=== PATIENT | female | born 1965 | race Caucasian/White ===

== ENCOUNTER 2016-11-07 13:11 | Emergency (ER) | payer OTHER ==
--- NOTE | 2016-11-07 13:25 | EDPHY ---
HPI/HX/ROS/PE/MDM Narrative: CHIEF COMPLAINT: Left-sided paresthesias HPI: This patient is an anticoagulated 51 year old female complaining of an episode of left-sided numbness and facial droop onset one hour ago. She began feeling numbness on her left side, and loss of sensation in her left forefinger and thumb. She was in a meeting with a client and got up to leave the coffee shop and noted tingling in her back and shoulders. She went back in to find a mirror , and saw the left side of her face was drooping when she tried to smile. Her client, a nurse, drove her here to the emergency department for evaluation. Her facial droop is now resolved, but she continues to note numbness and paresthesias across the back of her head, arm, and shoulders. She denies pain anywhere in her body or any recent trauma. Of note, she generally takes Prozac for management of post-menopausal symptoms, but ran out of her prescription on Sunday so has not taken it in four days. The patient has a complex history related to mitral valve regurgitation repair. She had an paola replacement placed 01/[address] Carpenter at [facility]. Following the procedure, she sustained a myocardial infarction and cardiogenic shock. While in cardiac rehab, she suffered a stroke or transient ischemic attack, which resolved on its own. She is now anticoagulated, on Plavix and Coumadin. She denies history of hypertension, hyperlipidemia, or coronary artery disease. Due to this history, she is vigilant regarding potential stroke symptoms. REVIEW OF SYSTEMS: Aside from elements discussed in the HPI, a comprehensive 10-point review of systems was reviewed and is negative. PMH: Mitral valve replacement, CVA (Coumadin, Plavix) SOCIAL HISTORY: . at bedside. 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 PHYSICAL EXAM: General:Patient is alert, in no acute distress. ENT:Eyes are normal to inspection. ENT inspection normal. Neck: Normal inspection. Full range of motion. Respiratory:No respiratory distress. Breath sounds normal bilaterally. Cardiovascular: Regular rate and rhythm. Strong peripheral pulses. Normal cap refill. Abdomen:The abdomen is nontender to palpation. There are no peritoneal signs. There are normal bowel sounds. Back: Normal to inspection. No tenderness to palpation. Skin: Normal color. No rash. Warm and dry. Extremities: Normal appearance. Full range of motion. Neuro: Oriented x3. Normal motor function. Normal sensory function. No pronator drift. No facial droop. 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 Speech normal. Normal gait. Portions of this note were transcribed by an ED scribe. I personally performed the history, physical exam, and medical decision making; and confirm the accuracy of the information in the transcribed note. ED Course: 51 year old female presents with back, neck, and left upper extremity numbness onset one hour ago. Normal neurologic exam at this time. Plan for CBC, BMP, Troponin, PTPTT. Plan to administer 1mg IV Ativan. Plan for CT head without contrast. 14:[address] Szymanski, radiologist. CT head reveals no evidence for acute intracranial abnormality. There is a focal area of encephalomalacia in the posterolateral left frontal lobe suggesting sequela from an old infarct. 15:[address] Hector neurologist. He recommends CTA studies of patient' s head and neck. 16:[address] Brown, radiologist. CTA head and neck negative for acute processes. Incidentally, noted opacity in lung, Dr. Brown recommends CT chest. Reassessed the patient. Discussed imaging results. Offered CT chest at this time or in outpatient setting. She prefers to complete the scan now. Plan for CT chest for further evaluation of the patient's lung abnormality. 17:18 Reassessed patient. 17:45 Patient has left her room prior to CT and was found in the cafeteria. She will be offered the opportunity for outpatient scan. Waiting room is full at this time, and we are not able to hold her room. She will be offered space in the hallway beds for reassessment should she return. 18:[address] chest. She prefers not to wait for results. Plan to discharge home in good condition. Follow up and return precautions discussed. MDM: This patient presents with signs and symptoms of TIA. Her symptoms have largely resolved by time of arrival and I see no objective deficits on exam. Given her history of CVA and mitral valve surgery, we performed an extensive workup including CTA to ensure that there was no interventionable issue. Thankfully workup is negative. The patient is essentially maximized from a CVA prevention standpoint given her coumadin therapy, and on-call Neurology does not think further workup is necessary. The patient's CTA revealed an incidental ground-glass opacity in the lung. I discussed this issue with the patinent and offered her CT chest during this visit to evaluate this abnormality vs. the option of following up with her PCP for further evaluation. She elected to go with CT-chest during this visit in order to try and save on insurance fees. I ordered the test. Not long after, I was called back to room as patient and her were asking why they were not yet discharged and what the plan was. I reiterated to them that we we had discussed the option of a CT chest and that patient had requested we perform one. They agreed to stay for the test. Approximately 5-10 minutes after that conversation, the page technician attempted to get the patient for the study but she was nowhere to be found. We searched the ED but could not find her, so turned over the bed as our waiting room was full of emergency patients waiting to be seen. Her belongings were turned over to security. The patient was eventually located in the cafeteria having dinner with her . She underwent the CT scan but on return to the ED told the nurse that she did not want to wait for results and wanted to be discharged immediately. She was informed that we could not follow-up with her regarding the results if she chose this path. She left the ER. - Data Points Imaging Results: Imaging Impressions Head CT 11/07/16 13:35 Impression: No evidence for acute intracranial abnormality. Focal area of encephalomalacia in the posterolateral left frontal lobe suggesting sequela from an old infarct. Results called and discussed with Ciro Stewart MD, at 1435 hours 11/07/2016. Head CTA 11/07/16 15:11 Impression: 1. No acute vascular findings. 2. Beaded appearance of the internal carotid and vertebral arteries, suggesting fibromuscular dysplasia. 3. Incompletely visualized right upper lobe ground-glass opacity, measuring up to 1.5 cm in its maximal visualized extent. CT chest is recommended for further evaluation. 4. 1.3 x 0.8 cm parafalcine left frontal mass most likely representing a meningioma, without significant mass effect. 5. Additional findings, as above. Stenoses are calculated using [place] Symptomatic Carotid Endarterectomy Trial (NASCET) criteria. Findings discussed with Ciro Stewart M.D., on November 07, 2016 at 1604. E:NW/amm Neck CTA 11/07/16 15:11 Impression: 1. No acute vascular findings. 2. Beaded appearance of the internal carotid and vertebral arteries, suggesting fibromuscular dysplasia. 3. Incompletely visualized right upper lobe ground-glass opacity, measuring up to 1.5 cm in its maximal visualized extent. CT chest is recommended for further evaluation. 4. 1.3 x 0.8 cm parafalcine left frontal mass most likely representing a meningioma, without significant mass effect. 5. Additional findings, as above. Stenoses are calculated using [place] Symptomatic Carotid Endarterectomy Trial (NASCET) criteria. Findings discussed with Ciro Stewart M.D., on November 07, 2016 at 1604. E:NW/amm Imaging: Discussed imaging studies w/ crew caller Radiologist Laboratory Results: Laboratory Results 11/07/16 13:45 11/07/16 13:45 11/07/16 11/07/16 11/07/16 13:45 13:45 13:45 WBC 5.66 10^3/uL 10^3/uL (3.80-9.50) RBC 4.93 10^6/uL 10^6/uL (4.18-5.33) Hgb 14.8 g/dL g/dL (12.6-16.3) Hct 45.5 % % (38.0-47.0) MCV 92.3 fL fL (81.5-99.8) MCH 30.0 pg pg (27.9-34.1) MCHC 32.5 g/dL g/dL (32.4-36.7) RDW 13.4 % % (11.5-15.2) Plt Count 223 10^3/uL 10^3/uL (150-400) MPV 12.0 fL H fL (8.7-11.7) Neut % (Auto) 52.5 % % (39.3-74.2) Lymph % (Auto) 38.5 % % (15.0-45.0) [place] % (Auto) 4.8 % % (4.5-13.0) Eos % (Auto) 2.8 % % (0.6-7.6) Baso % (Auto) 1.2 % % (0.3-1.7) Nucleat RBC Rel Count 0.0 % % (0.0-0.2) Absolute Neuts (auto) 2.97 10^3/uL 10^3/uL (1.70-6.50) Absolute Lymphs (auto) 2.18 10^3/uL 10^3/uL (1.00-3.00) Absolute Monos (auto) 0.27 10^3/uL L 10^3/uL (0.30-0.80) Absolute Eos (auto) 0.16 10^3/uL 10^3/uL (0.03-0.40) Absolute Basos (auto) 0.07 10^3/uL 10^3/uL (0.02-0.10) Absolute Nucleated RBC 0.00 10^3/uL 10^3/uL (0-0.01) Immature Gran % 0.2 % % (0.0-1.1) Immature Gran # 0.01 10^3/uL 10^3/uL (0.00-0.10) PT 26.0 SEC H SEC (12.0-15.0) INR 2.36 H (0.83-1.16) APTT 37.1 SEC SEC (23.0-38.0) Sodium 141 mEq/L mEq/L (134-144) Potassium 3.9 mEq/L mEq/L (3.5-5.2) Chloride 104 mEq/L mEq/L (97-110) Carbon Dioxide 23 mEq/l mEq/l (22-31) Anion Gap 14 mEq/L mEq/L (8-16) BUN 20 mg/dL mg/dL (7-23) Creatinine 0.8 mg/dL mg/dL (0.6-1.0) Estimated GFR > 60 Glucose 80 mg/dL mg/dL (70-100) Calcium 9.7 mg/dL mg/dL (8.5-10.4) Troponin I < 0.012 ng/mL ng/mL (0-0.034) Medications Given: Discontinued Medications Lorazepam (Ativan Injection) 1 mg IVP EDNOW ONE Stop: 11/07/16 13:35 Last Admin: 11/07/16 13:50 Dose: 1 mg General Time Seen by Provider: 11/07/16 13:19 Initial Vital Signs: Initial Vital Signs Temperature (C) 36.4 C 11/07/16 13:11 Heart Rate 57 L 11/07/16 13:11 Respiratory Rate 18 11/07/16 13:11 Blood Pressure 146/77 H 11/07/16 13:11 O2 Sat (%) 97 11/07/16 13:11 O2 Delivery Mode Room Air Allergies/Adverse Reactions: Sulfa (Sulfonamide Antibiotics) Allergy (Mild, Verified 11/07/16 13:13) Fever Home Medications: Medication Instructions Recorded Aspirin [Aspirin 81mg (*)] 81 mg PO DAILY 11/07/16 Clopidogrel Bisulfate [Plavix (*)] 75 mg PO DAILY 11/07/16 FLUoxetine [PROzac] 10 mg PO 11/07/16 Lisinopril [Zestril 5 mg (*)] 5 mg PO 11/07/16 Metoprolol Succinate 50 mg PO 11/07/16 Warfarin Sodium [Coumadin 5MG (*)] 5 mg PO DAILY16 11/07/16 Departure - Departure Disposition: Home, Routine, Self-Care Clinical Impression: TIA (transient ischemic attack) Condition: Good Instructions: Transient Ischemic Attack (ED) Additional Instructions: 1. Follow up with a neurologist this week without fail. We have referred you to our neurologist foreign correspondent. 2. Follow up with your primary care provider this week without fail for continued symptom management. 3. Return to the emergency department for headache, nausea, vomiting, numbness, weakness, neck pain, fever, slurred speech, confusion, or other concerns. 4. Call for your CT results. Referrals: Don Hector MD [Medical Doctor] - As per Instructions Report Scribed for: Ciro Stewart Report Scribed by: Stephani Jung Date of Report: 11/07/16 Time of Report: 13:25
[2016-11-07] MEDS ORDERED: LORazepam 2 MG/ML INJ IVP ONE (13:34)
[2016-11-07 13:57] LABS: % IMMATURE GRANULYOCYTES 0.2 % (0.0-1.1); ABSOLUTE IMMATURE GRANULOCYTES 0.01 10^3/uL (0.00-0.10); ADD DIFF? NO; ADD MORPH? NO; ADD SCAN? NO; ATYPICAL LYMPHOCYTE FLAG 0 (0-99); FRAGMENT RBC FLAG 0 (0-99); HEMATOCRIT 45.5 % (38.0-47.0); HEMOGLOBIN 14.8 g/dL (12.6-16.3); LEFT SHIFT FLG 0 (0-99); LIPEMIA HEMOLYSIS FLAG 80 (0-99); MEAN CELL HEMOGLOBIN CONCENTR. 32.5 g/dL (32.4-36.7); MEAN CELL VOLUME 92.3 fL (81.5-99.8); PLATELET CLUMPS FLAG 10 (0-99); PLATELET COUNT 223 10^3/uL (150-400); RED BLOOD CELL COUNT 4.93 10^6/uL (4.18-5.33); RED CELL DISTRIBUTION WIDTH 13.4 % (11.5-15.2)
[2016-11-07 14:06] LABS: APTT 37.1 SEC (23.0-38.0); INR 2.36 (0.83-1.16)
[2016-11-07 14:07] LABS: ANION GAP 14 mEq/L (8-16); CALCIUM 9.7 mg/dL (8.5-10.4); CARBON DIOXIDE 23 mEq/l (22-31); CHLORIDE 104 mEq/L (97-110); CREATININE 0.8 mg/dL (0.6-1.0); GLOMERULAR FILTRATION RATE > 60; GLUCOSE 80 mg/dL (70-100); POTASSIUM 3.9 mEq/L (3.5-5.2); SODIUM 141 mEq/L (134-144)
[2016-11-07 14:19] LABS: TROPONIN I < 0.012 ng/mL (0-0.034)
--- NOTE | 2016-11-07 14:43 | CPEKG ---
Heart Rate: 50 RR Interval: 1200 P-R Interval: 167 QRSD Interval: 88 QT Interval: 516 QTC Interval: 471 P Tea: 14 QRS Tea: 45 T Wave Tea: -50 EKG Severity - ABNORMAL ECG - EKG Impression: SINUS RHYTHM EKG Impression: ABNORMAL T, CONSIDER ISCHEMIA, INFERIOR LEADS Electronically Signed By: Campbell Menjivar 09-Nov-2016 15:28:17
[2016-11-07] MEDS ORDERED: IOPAMIDOL (ISOVUE 370) 100 ML BTL IV ONE (15:17)
[2016-11-07 18:29] VITALS: BP 110/60; PULSE 59; RESP 20; TEMP 97.7; O2SAT 97
== END 2016-11-07 18:30 | disposition home or self-care (01) ==
DX: G45.9 Transient cerebral ischemic attack, unspecified (principal); Z79.82 Long term (current) use of aspirin; Z79.01 Long term (current) use of anticoagulants
CPT/HCPCS: 96374; J2060; Q9967